=== PATIENT | male | born 1945 | race Two or more races ===

== ENCOUNTER 2023-05-04 18:17 | Emergency (ER) | payer MEDICARE ==
[~2023-05-04] VITALS: Ht 177.8 cm; Wt 95.5 kg
[~2023-05-04 18:17] MED LIST: CYCL-1 PO; DOCU-28 PO; OXYC-145 PO
[2023-05-04 18:25] VITALS: BP 128/81; PULSE 76; RESP 18; TEMP 98; O2SAT 98
== END 2023-05-04 19:12 | disposition home or self-care (01) ==
LOC: ER 18:17
DX: S60.211A Contusion of right wrist, initial encounter (principal); Z79.899 Other long term (current) drug therapy; I10 Essential (primary) hypertension; W18.39XA Other fall on same level, initial encounter; Y93.89 Activity, other specified; Y92.89 Other specified places as the place of occurrence of the external cause; Y99.8 Other external cause status
CPT/HCPCS: 29125; 73110; 99284

== ENCOUNTER 2024-04-21 17:37 | Emergency (ER) | payer BC, MEDICAID ==
[~2024-04-21] VITALS: Ht 177.8 cm; Wt 98.0 kg
[2024-04-21 18:11] LABS: BASOPHILS % (AUTO) 0.3 % (0-1); EOSINOPHILS % (AUTO) 0.2 % (0-6); HEMOGLOBIN 13.8 g/dl (14.0-17.9); LYMPHOCYTES # (AUTO) 0.5 X10'3 (1.1-4.8); LYMPHOCYTES % (AUTO) 3.5 % (21-51); MEAN CORPUSCULAR HEMOGLOBIN 30.2 PG (27.0-31.0); MEAN CORPUSCULAR HGB CONC 34.6 g/dL (33.0-36.5); MEAN CORPUSCULAR VOLUME 87.2 FL (78-98); MEAN PLATELET VOLUME 8.2 FL (7.4-10.4); MONOCYTES # (AUTO) 0.7 X10'3 (0-0.9); MONOCYTES % (AUTO) 4.7 % (2-12); NEUTROPHILS # (AUTO) 13.6 X10'3 (1.8-7.7); NEUTROPHILS % (AUTO) 91.3 % (42-75); PLATELET COUNT 230 X10'3 (140-440); RED BLOOD COUNT 4.58 X10'6 (4.70-6.10); WHITE BLOOD COUNT 14.9 X10'3 (4.5-11.0)
[2024-04-21 18:38] LABS: ALANINE AMINOTRANSFERASE 30 U/L (12-78); ALBUMIN 3.8 G/DL (3.4-5.0); ALKALINE PHOSPHATASE 88 IU/L (46-116); ANION GAP 11 (8-16); ASPARTATE AMINO TRANSFERASE 24 U/L (10-37); BILIRUBIN,TOTAL 0.7 MG/DL (0.1-1.0); BLOOD UREA NITROGEN 18 MG/DL (7-18); BUN/CREATININE RATIO 19.8 (10.0-20.0); CALCIUM 9.5 MG/DL (8.5-10.1); CHLORIDE 96 MMOL/L (99-107); CREATININE 0.91 MG/DL (0.60-1.10); GLUCOSE 129 MG/DL (70-104); POTASSIUM 3.1 MMOL/L (3.5-5.1); SODIUM 133 MMOL/L (135-145); TOTAL CARBON DIOXIDE 26.4 MMOL/L (24-32); TOTAL PROTEIN 7.6 G/DL (6.4-8.2); eCRCL 70 ML/MIN; eGFR 81 ML/MIN
[2024-04-21 18:42] LABS: TOTAL CELLS COUNTED 100
[2024-04-21 18:43] LABS: PLATELET ESTIMATE NORMAL
[2024-04-21 18:45] LABS: PRO BRAIN NATRIURETIC PEPTIDE 303 PG/ML (0-450)
[2024-04-21] MEDS ORDERED: ibuprofen tablet 400 MG TABLET PO ONE (19:20)
[2024-04-21] MEDS: ondansetron 4mg rapidly disintigrating tab PO ONE (19:32)
[2024-04-21] MEDS: ibuprofen 200mg tablet PO ONE (19:35)
[2024-04-21 20:52] LABS: BILIRUBIN,URINE NEGATIVE (Neg); CLARITY,URINE CLOUDY (Clear); COLOR,URINE YELLOW (Yellow); GLUCOSE, URINE NEGATIVE (Neg); KETONES,URINE TRACE mg/dl (Neg); LEUKOCYTE ESTERASE ,URINE LARGE (Neg); NITRITES, URINE POSITIVE (Neg); OCCULT BLOOD,URINE NEGATIVE (Neg); PH,URINE 8.5 (4.8-8.0); PROTEIN,URINE 100 mg/dl (Neg); UROBILINOGEN,URINE 0.2 E.U/dL (0.2-1.0)
[2024-04-21 20:53] LABS: UA COLLECTION TYPE CLN CATCH MIDSTREAM
[2024-04-21 20:57] LABS: BACTERIA,URINE 4+ /HPF (Neg); SQUAMOUS EPITHELIAL CELL,UR MODERATE /LPF (FEW)
[2024-04-21 20:58] LABS: RBC,URINE NONE SEEN /HPF (0-2); WBC,URINE TNTC /HPF (0-4)
[2024-04-21] MEDS: CefTRIAXone 2gm/D5W 50ml BAG 50 ML IV ONE (21:15)
[2024-04-21] MEDS ORDERED: CIPR-202 PO (21:22)
[2024-04-21 22:45] VITALS: BP 109/66; PULSE 89; RESP 19; TEMP 98.6; O2SAT 96
== END 2024-04-21 22:47 | disposition home or self-care (01) ==
LOC: ER 17:38
DX: N39.0 Urinary tract infection, site not specified (principal); I10 Essential (primary) hypertension; G89.29 Other chronic pain; Z79.899 Other long term (current) drug therapy; Z98.890 Other specified postprocedural states; Z85.038 Personal history of other malignant neoplasm of large intestine; Z20.822 Contact with and (suspected) exposure to COVID-19
CPT/HCPCS: 36415; 71045; 80053; 81001; 83605; 83880; 84145; 84484; 85007; 85025; 87077; 87088; 87186; 87502; 87503; 87811; 93005; 96365; 99285; J0696; J7030; A4615